=== PATIENT | male | born 1945 | race Caucasian/White ===

== ENCOUNTER 2019-12-11 07:14 | Day surgery (SDC) | payer MEDICARE, OTHER ==
[~2019-12-11 07:14] MED LIST: Cefuroxime 10 MG/ML SYRINGE EYERT SCH
[2019-12-11] MEDS: Polymyxin B/Trimethoprim 10 ML Bottle EYERT SCH ×4 (07:29→09:23)
[2019-12-11] MEDS: Brimonidine 0.2% Ophth Soln 5 ML Bottle EYERT SCH ×4 (07:34→09:23)
--- NOTE | 2019-12-11 07:37 | PCM.PREANE ---
Preanesthetic Assessment - Anesthesia/Transfusion/Family Hx Anesthesia History: Prior Anesthesia Without Reaction Family History of Anesthesia Reaction: No Transfusion History: No Prior Transfusion(s) - Review of Systems General: No Symptoms Pulmonary: No Symptoms Cardiovascular: No Symptoms Neurological: No Symptoms Other: Reports: None - Physical Assessment NPO Status Date: 12/10/19 NPO Status Time: 20:00 ASA Class: 2 Mental Status: Alert & Oriented x3 Airway Class: Mallampati = 2 Dentition: Reports: Dentures Thyro-Mental Finger Breadths: 3 Mouth Opening Finger Breadths: 3 ROM/Head Extension: Full Lungs: Clear to Auscultation, Normal Respiratory Effort Cardiovascular: Regular Rate, Regular Rhythm - Allergies Allergies/Adverse Reactions: Allergies Allergy/AdvReac Type Severity Reaction Status Date / Time Penicillins Allergy Swollen Verified 12/10/19 21:20 Tongue - Anesthesia Plan Beta Liliya: Metoprolol Med Last Dose Date: 12/11/19 Med Last Dose Time: 06:30 - Acknowledgements Anesthesia Type Planned: MAC Pt an Appropriate Candidate for the Planned Anesthesia: Yes Alternatives and Risks of Anesthesia Discussed w Pt/Guardian: Yes Pt/Guardian Understands and Agrees with Anesthesia Plan: Yes PreAnesthesia Questionnaire HEENT History: Reports: Cataract Cardiovascular History: Reports: High Cholesterol, Hypertension Respiratory History: Reports: None Gastrointestinal History: Reports: None Genitourinary History: Reports: None Musculoskeletal History: Reports: None Psychiatric History: Reports: None Endocrine/Metabolic History: Reports: Diabetes, 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) - Past Surgical History GI Surgical History: Reports: Colonoscopy - SUBSTANCE USE Smoking Status *Q: Former Smoker - HOME MEDS Home Medications: Home Meds Allopurinol [Zyloprim] 300 mg PO DAILY 12/10/19 [History] Garlic 500 mg PO DAILY 12/10/19 [History] Metoprolol Succinate [Toprol XL] 25 mg PO DAILY 12/10/19 [History] Multivitamin 1 tab PO DAILY 12/10/19 [History] Red Yeast Rice 600 mg PO DAILY 12/10/19 [History] amLODIPine Besylate [Norvasc] 5 mg PO DAILY 12/10/19 [History] lisinopriL [Lisinopril] 20 mg PO DAILY 12/10/19 [History] - CURRENT (IN HOUSE) MEDS Current Meds: Current Medications Brimonidine Tartrate (Alphagan 0.2% Ophth Soln) 0 ml EYERT ASDIRECTED HILARY Stop: 12/11/19 18:00 Cefuroxime Sodium (Zinacef) 0 mg EYERT ASDIRECTED HILARY Stop: 12/11/19 18:00 Lidocaine HCl (Xylocaine-Mpf 1%) 0 ml INJECT ASDIRECTED HILARY Stop: 12/11/19 18:00 Phenylephrine HCl (Lokesh-Synephrine 2.5% Ophth Soln) 0 ml EYERT ASDIRECTED HILARY Stop: 12/11/19 18:00 Pilocarpine HCl (Pilocar 4% Ophth Soln) 0 ml EYERT ASDIRECTED HILARY Stop: 12/11/19 18:00 Polymyxin/Trimethoprim Sulfate (Polytrim Ophth Soln) 0 ml EYERT ASDIRECTED HILARY Stop: 12/11/19 16:00 Tetracaine HCl (Tetracaine 0.5% Steri-Unit Teresa) 0 ml EYEBOTH ASDIRECTED HILARY Stop: 12/11/19 18:00 Tropicamide (Mydriacyl 1% Ophth Soln) 0 ml EYERT ASDIRECTED HILARY Stop: 12/11/19 18:00
[2019-12-11] MEDS: Phenylephrine 2.5% Ophth Soln 2 ML Bot EYERT SCH ×7 (07:38→09:02)
[2019-12-11] MEDS: Lidocaine 1% PF 2 ML SDV INJECT SCH ×2 (07:40→09:09)
[2019-12-11] MEDS: Tetracaine HCl/PF 0.5% 4 ML Bottle EYEBOTH SCH ×5 (07:40→09:08)
[2019-12-11] MEDS: Pilocarpine 4% Ophth Soln 15 ML Bot EYERT SCH ×2 (07:41→09:23)
[2019-12-11] MEDS: Tropicamide 1% Ophth Soln 15 ML Bottle EYERT SCH ×4 (07:43→08:33)
--- NOTE | 2019-12-11 09:24 | PCM48HPAN ---
Post Anesthesia Note - EVALUATION WITHIN 48HRS OF ANESTHETIC Vital Signs in Normal Range: Yes Patient Participated in Evaluation: Yes Respiratory Function Stable: Yes Airway Patent: Yes Cardiovascular Function Stable: Yes Hydration Status Stable: Yes Pain Control Satisfactory: Yes Nausea and Vomiting Control Satisfactory: Yes Mental Status Recovered: Yes Vital Signs: Last Vital Signs Temp 36.6 C 12/11/19 07:15 Pulse 64 12/11/19 07:15 Resp 16 12/11/19 07:15 BP 149/68 H 12/11/19 07:15 Pulse Ox 95 12/11/19 07:15
== END 2019-12-11 09:35 | disposition home or self-care (01) ==
LOC: JD.SDS 07:14
PROVIDERS: ATTEND Ophthalmology
DX: E11.36 Type 2 diabetes mellitus with diabetic cataract (principal); H25.813 Combined forms of age-related cataract, bilateral; H21.81 Floppy iris syndrome; H21.41 Pupillary membranes, right eye; E78.00 Pure hypercholesterolemia, unspecified; I10 Essential (primary) hypertension; Z87.891 Personal history of nicotine dependence; Z88.0 Allergy status to penicillin; Z79.899 Other long term (current) drug therapy
CPT/HCPCS: 66982; C1780; J0697; J2001

== ENCOUNTER 2020-01-08 07:30 | Day surgery (SDC) | payer MEDICARE, OTHER ==
--- NOTE | 2020-01-08 07:49 | PCM.PREANE ---
Preanesthetic Assessment - Procedure Proposed Procedure: cataract left - Anesthesia/Transfusion/Family Hx Anesthesia History: Prior Anesthesia Without Reaction Family History of Anesthesia Reaction: No Transfusion History: No Prior Transfusion(s) - Review of Systems General: No Symptoms Pulmonary: No Symptoms Cardiovascular: No Symptoms Gastrointestinal: No Symptoms Neurological: No Symptoms Other: Reports: None - Physical Assessment NPO Status Date: 01/07/20 NPO Status Time: 21:00 Vital Signs: 147/67 62 97% 20 98.1 Height: 5 ft 10 in Weight: 86.183 kg ASA Class: 2 Mental Status: Alert & Oriented x3 Airway Class: Mallampati = 1 Dentition: Reports: Dentures (top and bottom) Thyro-Mental Finger Breadths: 3 Mouth Opening Finger Breadths: 3 ROM/Head Extension: Full Lungs: Clear to Auscultation, Normal Respiratory Effort Cardiovascular: Regular Rate, Regular Rhythm - Allergies Allergies/Adverse Reactions: Allergies Allergy/AdvReac Type Severity Reaction Status Date / Time Penicillins Allergy Swollen Verified 01/07/20 14:54 Tongue - Blood Blood Available: No - Anesthesia Plan Beta Liliya: Metoprolol Med Last Dose Date: 01/08/20 Med Last Dose Time: 06:30 - Acknowledgements Anesthesia Type Planned: MAC Pt an Appropriate Candidate for the Planned Anesthesia: Yes Alternatives and Risks of Anesthesia Discussed w Pt/Guardian: Yes Pt/Guardian Understands and Agrees with Anesthesia Plan: Yes PreAnesthesia Questionnaire HEENT History: Reports: Cataract Cardiovascular History: Reports: High Cholesterol, Hypertension Respiratory History: Reports: None Gastrointestinal History: Reports: None Genitourinary History: Reports: None Musculoskeletal History: Reports: None, Gout Psychiatric History: Reports: None Endocrine/Metabolic History: Reports: Diabetes, 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) - Past Surgical History HEENT Surgical History: Reports: Cataract Surgery GI Surgical History: Reports: Colonoscopy - SUBSTANCE USE Smoking Status *Q: Former Smoker Tobacco Use Within Last Twelve Months: No Second Hand Smoke Exposure: No Days Per Week of Alcohol Use: 0 Recreational Drug Use History: No - HOME MEDS Home Medications: Home Meds Allopurinol [Zyloprim] 300 mg PO DAILY 12/10/19 [History] Garlic 500 mg PO DAILY 12/10/19 [History] Metoprolol Succinate [Toprol XL] 25 mg PO DAILY 12/10/19 [History] Multivitamin 1 tab PO DAILY 12/10/19 [History] Red Yeast Rice 600 mg PO DAILY 12/10/19 [History] amLODIPine Besylate [Norvasc] 5 mg PO DAILY 12/10/19 [History] lisinopriL [Lisinopril] 20 mg PO DAILY 12/10/19 [History] - CURRENT (IN HOUSE) MEDS Current Meds: Current Medications Brimonidine Tartrate (Alphagan 0.2% Ophth Soln) 0 ml EYELF ASDIRECTED HILARY Stop: 01/08/20 23:00 Cefuroxime Sodium (Zinacef) 0 mg EYELF ASDIRECTED HILARY Stop: 01/08/20 23:00 Lidocaine HCl (Xylocaine-Mpf 1%) 0 ml INJECT ASDIRECTED HILARY Stop: 01/08/20 23:00 Phenylephrine HCl (Lokesh-Synephrine 2.5% Ophth Soln) 0 ml EYELF ASDIRECTED HILARY Stop: 01/08/20 23:00 Pilocarpine HCl (Pilocar 4% Ophth Soln) 0 ml EYELF ASDIRECTED HILARY Stop: 01/08/20 23:00 Polymyxin/Trimethoprim Sulfate (Polytrim Ophth Soln) 0 ml EYELF ASDIRECTED HILARY Stop: 01/08/20 23:00 Tetracaine HCl (Tetracaine 0.5% Steri-Unit Teresa) 0 ml EYEBOTH ASDIRECTED HILARY Stop: 01/08/20 23:00 Tropicamide (Mydriacyl 1% Ophth Soln) 0 ml EYELF ASDIRECTED HILARY Stop: 01/08/20 23:00
[2020-01-08] MEDS: Polymyxin B/Trimethoprim 10 ML Bottle EYELF SCH ×4 (08:01→10:18)
[2020-01-08] MEDS: Brimonidine 0.2% Ophth Soln 5 ML Bottle EYELF SCH ×5 (08:07→10:18)
[2020-01-08] MEDS: Phenylephrine 2.5% Ophth Soln 2 ML Bot EYELF SCH ×6 (08:12→10:08)
[2020-01-08] MEDS: Tropicamide 1% Ophth Soln 15 ML Bottle EYELF SCH ×4 (08:16→09:28)
[2020-01-08] MEDS: Tetracaine HCl/PF 0.5% 4 ML Bottle EYEBOTH SCH ×5 (09:40→10:08)
[2020-01-08] MEDS: Lidocaine 1% PF 2 ML SDV INJECT SCH ×2 (10:03→10:08)
[2020-01-08] MEDS: Cefuroxime 10 MG/ML SYRINGE EYELF SCH ×2 (10:09→10:17)
[2020-01-08] MEDS: Pilocarpine 4% Ophth Soln 15 ML Bot EYELF SCH ×2 (10:09→10:18)
--- NOTE | 2020-01-08 10:21 | PCM48HPAN ---
Post Anesthesia Note - EVALUATION WITHIN 48HRS OF ANESTHETIC Vital Signs in Normal Range: Yes Patient Participated in Evaluation: Yes Respiratory Function Stable: Yes Airway Patent: Yes Cardiovascular Function Stable: Yes Hydration Status Stable: Yes Pain Control Satisfactory: Yes Nausea and Vomiting Control Satisfactory: Yes Mental Status Recovered: Yes Vital Signs: Last Vital Signs Temp 98.1 F 01/08/20 07:40 Pulse 62 01/08/20 07:40 Resp 20 01/08/20 07:40 BP 147/67 H 01/08/20 07:40 Pulse Ox 92 L 01/08/20 07:40 1019 159/90 20 69 94%
== END 2020-01-08 10:29 | disposition home or self-care (01) ==
LOC: JD.SDS 07:30
PROVIDERS: ATTEND Ophthalmology
DX: H25.812 Combined forms of age-related cataract, left eye (principal); H02.831 Dermatochalasis of right upper eyelid; H02.834 Dermatochalasis of left upper eyelid; H21.81 Floppy iris syndrome; H52.31 Anisometropia; E78.00 Pure hypercholesterolemia, unspecified; I10 Essential (primary) hypertension; Z88.0 Allergy status to penicillin; Z79.899 Other long term (current) drug therapy; Z96.1 Presence of intraocular lens; Z87.891 Personal history of nicotine dependence
CPT/HCPCS: 66984; J0697; J2001; V2632

== ENCOUNTER 2021-05-19 16:59 | Emergency (ER) | payer MEDICARE, OTHER ==
[2021-05-19] MEDS ORDERED: Sodium Chloride 0.9% 10 ML Syringe FLUSH PRN (17:35)
--- NOTE | 2021-05-19 18:45 | CR ---
Chest: Portable view of the chest was obtained. Comparison: No prior chest imaging is available. Heart size and mediastinum are within normal limits. Small linear density is seen within the right midlung most likely representing scarring. Slight scarring is also suggested within the left base. Lungs otherwise are clear. Bony structures show nothing acute. Impression: 1. Findings believed to be chronic as described above. 2. Nothing acute is appreciated. Diagnostic code #2
[2021-05-19] MEDS ORDERED: Dexamethasone 10 MG/ML SDV IVPUSH ONE (18:55)
--- NOTE | 2021-05-19 19:19 | EDM.PDOC ---
ED HPI GENERAL MEDICAL PROBLEM - General Chief Complaint: Respiratory Problem Stated Complaint: COVID +/LOW O2 Time Seen by Provider: 05/19/21 17:19 Source of Information: Reports: Patient, RN Notes Reviewed History Limitations: Reports: No Limitations - History of Present Illness INITIAL COMMENTS - FREE TEXT/NARRATIVE: Patient is a 75-year-old male presenting to the emergency department with complaints of low oxygen saturation with a likely diagnosis of COVID-19. He reports has been ill for approximately 7 days with cough, intermittent fevers, diarrhea, and shortness of breath. He has not been diagnosed with Covid, however his was diagnosed as Covid positive admitted to the hospital. He has been checking his oxygen saturations at home intermittently and found today that his oxygen was low. On arrival to ER, he was 75% on room air, however on 2 L he is saturating in the low 90s. Patient denies any chest pain, nausea, vomiting. He was not vaccinated for Covid. - Related Data Allergies Allergy/AdvReac Type Severity Reaction Status Date / Time Penicillins Allergy Swollen Verified 01/07/20 14:54 Tongue Home Meds: Home Meds Allopurinol [Zyloprim] 300 mg PO DAILY 12/10/19 [History] Garlic 500 mg PO DAILY 12/10/19 [History] Metoprolol Succinate [Toprol XL] 25 mg PO DAILY 12/10/19 [History] Multivitamin 1 tab PO DAILY 12/10/19 [History] Red Yeast Rice 600 mg PO DAILY 12/10/19 [History] amLODIPine Besylate [Norvasc] 5 mg PO DAILY 12/10/19 [History] lisinopriL [Lisinopril] 20 mg PO DAILY 12/10/19 [History] dexAMETHasone [Decadron] 6 mg PO DAILY 4 Days #4 tablet 05/19/21 [Rx] Past Medical History HEENT History: Reports: Cataract Cardiovascular History: Reports: High Cholesterol, Hypertension Respiratory History: Reports: None Gastrointestinal History: Reports: None Genitourinary History: Reports: None Musculoskeletal History: Reports: None, Gout Psychiatric History: Reports: None Endocrine/Metabolic History: Reports: Diabetes, 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 Denies: Pleuritic Chest Pain Cardiovascular: Reports: Dyspnea on Exertion. Denies: Chest Pain, Lightheadedness Endocrine: Reports: No Symptoms GI/Abdominal: Reports: Diarrhea. Denies: Abdominal Pain, Nausea, Vomiting : Reports: No Symptoms Musculoskeletal: Reports: No Symptoms Skin: Reports: No Symptoms Neurological: Reports: No Symptoms Psychiatric: Reports: No Symptoms Hematologic/Lymphatic: Reports: No Symptoms Immunologic: Reports: No Symptoms ED EXAM, GENERAL - Physical Exam Exam: See Below Exam Limited By: No Limitations General Appearance: Alert, WD/WN, No Apparent Distress Respiratory/Chest: No Respiratory Distress, Lungs Clear, No Accessory Muscle Use, Chest Non-Tender, Decreased Breath Sounds Cardiovascular: Normal Peripheral Pulses, Regular Rate, Rhythm, No Edema, No Gallop, No JVD, No Murmur, No Rub GI/Abdominal: Normal Bowel Sounds, Soft, Non-Tender, No Organomegaly, No Distention, No Abnormal Bruit, No Mass Neurological: Alert, Oriented, CN II-XII Intact, Normal Cognition, Normal Gait, Normal Reflexes, No Motor/Sensory Deficits Psychiatric: Normal Affect, Normal Mood Skin Exam: Warm, Dry, Intact, Normal Color, No Rash #1 Interpretation EKG Date: 05/19/21 Time: 17:24 Rhythm: Other (sinus arrhythmia) Rate (Beats/Min): 68 [place]: Normal P-Wave: Present QRS: Other (LAFB) ST-T: Normal QT: Normal Course - Vital Signs Last Recorded V/S: Last Vital Signs Temp 98 F 05/19/21 17:21 Pulse 71 05/19/21 17:21 Resp 16 05/19/21 17:21 BP 147/74 H 05/19/21 17:21 Pulse Ox 86 L 05/19/21 19:39 - Orders/Labs/Meds Orders: Active Orders 24 hr Category Date Time Status Peripheral IV Insertion Adult [OM.PC] Stat Oth 05/19/21 17:35 Ordered Labs: Laboratory Tests 05/19/21 05/19/21 05/19/21 Range/Units 17:46 18:00 18:00 WBC 3.21 L (4.23-9.07) K/mm3 RBC 5.30 (4.63-6.08) M/mm3 Hgb 15.7 (13.7-17.5) gm/dl Hct 47.1 (40.1-51.0) % MCV 88.9 (79.0-92.2) fl MCH 29.6 (25.7-32.2) pg MCHC 33.3 (32.2-35.5) g/dl RDW Std Deviation 43.0 (35.1-43.9) fL Plt Count 140 L (163-337) K/mm3 MPV 9.9 (9.4-12.3) fl Neut % (Auto) 70.5 H (34.0-67.9) % Lymph % (Auto) 11.5 L (21.8-53.1) % [place] % (Auto) 16.8 H (5.3-12.2) % Eos % (Auto) 0.6 L (0.8-7.0) Baso % (Auto) 0.3 (0.1-1.2) % Neut # (Auto) 2.26 (1.78-5.38) K/mm3 Lymph # (Auto) 0.37 L (1.32-3.57) K/mm3 [place] # (Auto) 0.54 (0.30-0.82) K/mm3 Eos # (Auto) 0.02 L (0.04-0.54) K/mm3 Baso # (Auto) 0.01 (0.01-0.08) K/mm3 D-Dimer, Quantitative 0.90 H (0.19-0.50) mg/L Sodium (136-145) mEq/L Potassium (3.5-5.1) mEq/L Chloride (98-107) mEq/L Carbon Dioxide (21-32) mEq/L Anion Gap (5-15) BUN (7-18) mg/dL Creatinine (0.7-1.3) mg/dL Est Cr Clr Drug Dosing Estimated GFR (MDRD) (>60) mL/min BUN/Creatinine Ratio (14-18) Glucose (70-99) mg/dL Calcium (8.5-10.1) mg/dL Total Bilirubin (0.2-1.0) mg/dL AST (15-37) U/L ALT (16-63) U/L Alkaline Phosphatase (46-116) U/L Troponin I (0.00-0.056) ng/mL C-Reactive Protein (<1.0) mg/dL NT-Pro-B Natriuret Pep (0-450) pg/mL Total Protein (6.4-8.2) g/dl Albumin (3.4-5.0) g/dl Globulin gm/dL Albumin/Globulin Ratio (1-2) SARS-CoV-2 RNA (AUBREY) Positive H (NEGATIVE) 05/19/21 05/19/21 Range/Units 18:00 18:00 WBC (4.23-9.07) K/mm3 RBC (4.63-6.08) M/mm3 Hgb (13.7-17.5) gm/dl Hct (40.1-51.0) % MCV (79.0-92.2) fl MCH (25.7-32.2) pg MCHC (32.2-35.5) g/dl RDW Std Deviation (35.1-43.9) fL Plt Count (163-337) K/mm3 MPV (9.4-12.3) fl Neut % (Auto) (34.0-67.9) % Lymph % (Auto) (21.8-53.1) % [place] % (Auto) (5.3-12.2) % Eos % (Auto) (0.8-7.0) Baso % (Auto) (0.1-1.2) % Neut # (Auto) (1.78-5.38) K/mm3 Lymph # (Auto) (1.32-3.57) K/mm3 [place] # (Auto) (0.30-0.82) K/mm3 Eos # (Auto) (0.04-0.54) K/mm3 Baso # (Auto) (0.01-0.08) K/mm3 D-Dimer, Quantitative (0.19-0.50) mg/L Sodium 135 L (136-145) mEq/L Potassium 4.0 (3.5-5.1) mEq/L Chloride 100 (98-107) mEq/L Carbon Dioxide 26 (21-32) mEq/L Anion Gap 13.0 (5-15) BUN 17 (7-18) mg/dL Creatinine 1.1 (0.7-1.3) mg/dL Est Cr Clr Drug Dosing TNP Estimated GFR (MDRD) > 60 (>60) mL/min BUN/Creatinine Ratio 15.5 (14-18) Glucose 112 H (70-99) mg/dL Calcium 8.1 L (8.5-10.1) mg/dL Total Bilirubin 0.8 (0.2-1.0) mg/dL AST 92 H (15-37) U/L ALT 183 H (16-63) U/L Alkaline Phosphatase 67 (46-116) U/L Troponin I < 0.017 (0.00-0.056) ng/mL C-Reactive Protein 2.5 H* (<1.0) mg/dL NT-Pro-B Natriuret Pep 135 (0-450) pg/mL Total Protein 7.1 (6.4-8.2) g/dl Albumin 3.6 (3.4-5.0) g/dl Globulin 3.5 gm/dL Albumin/Globulin Ratio 1.0 (1-2) SARS-CoV-2 RNA (AUBREY) (NEGATIVE) Meds: Medications Discontinued Medications Generic Name Dose Route Start Last Admin Trade Name Freq PRN Reason Stop Dose Admin Dexamethasone 6 mg 05/19/21 18:55 05/19/21 19:14 Dexamethasone 10 Mg/Ml Sdv IVPUSH 05/19/21 18:56 6 mg ONETIME ONE Administration Sodium Chloride 10 ml 05/19/21 17:35 05/19/21 18:01 Sodium Chloride 0.9% 10 Ml Syringe FLUSH 10 ml ASDIRECTED PRN Administration Keep Vein Open - Re-Assessments/Exams Free Text/Narrative Re-Assessment/Exam: Patient is a 75-year-old male presenting to the emergency department for low oxygen saturation with a likely diagnosis of Covid. His is Covid positive and he reports symptoms for the last 7 days. He has not been tested. After walking to the room, oxygen saturations were 75% on room air. He is on 2 L of oxygen currently saturating in the mid to upper 90s. On exam, lung sounds are clear to auscultation but diminished throughout. He has no chronic underlying lung conditions. I have ordered blood work, Covid testing, chest x-ray. I will give him dexamethasone 6 mg IV. 05/19/21 19:24 Hematology significant for D-dimer minimally elevated 0.90, sodium 135, glucose 112, AST 92, ALT 183, CRP 2.5. Troponin is undetectably low. Covid is positive. Chest x-ray shows no acute abnormalities. At rest, off of O2, oxygen saturations were 86%. Discussed treatment options with patient. Unfortunately we do not have any beds available in our facility. I did offer to look for placement in outlying facilities, however advised that offhand we do not know exactly where that may be. Discussed the option of home oxygen with him and he is comfortable with this and would like to go home with oxygen. I will start him on dexamethasone 6 mg daily. He will be sent home with supplemental O2 a pulse oximeter. Discussed that if he is requiring 4 more liters of oxygen to keep his saturations above 92%, he should return to the ER. He verbalized understanding of this. 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 His son does state that on a normal day, patient becomes quite dyspneic with exertion. Discharge instructions as documented. Departure - Departure Time of Disposition: 19:45 Disposition: Home, Self-Care 01 Condition: Good Clinical Impression: COVID-19, Hypoxia - Discharge Information *PRESCRIPTION DRUG MONITORING PROGRAM REVIEWED*: No *COPY OF PRESCRIPTION DRUG MONITORING REPORT IN PATIENT LYDIA: No Prescriptions: dexAMETHasone [Decadron] 6 mg PO DAILY 4 Days #4 tablet Instructions: Hypoxia, COVID-19 Referrals: Aaron Abraham MD [Primary Care Provider] - Forms: ED Department Discharge Additional Instructions: Use the home oxygen at 1 to 3 L to keep your oxygen saturations above 90% Take the dexamethasone as ordered beginning tomorrow evening. Tylenol and ibuprofen as needed for fever and discomfort. Ensure that you are taking an adequate amount of fluid. If you are requiring 4 more liters of oxygen to keep your saturations greater than 90% or you experience any other new or worsening symptoms, please do not hesitate to return to the emergency department for reevaluation. Sepsis Event Note (ED) - Evaluation Sepsis Screening Result: No Definite Risk - Focused Exam Vital Signs: Vital Signs Temp Pulse Resp BP Pulse Ox 05/19/21 19:39 86 L 05/19/21 17:21 98 F 71 16 147/74 H 75 L - My Orders Last 24 Hours: My Active Orders 05/19/21 17:35 Peripheral IV Insertion Adult [OM.PC] Stat - Assessment/Plan Last 24 Hours: My Active Orders 05/19/21 17:35 Peripheral IV Insertion Adult [OM.PC] Stat
== END 2021-05-19 20:41 | disposition home or self-care (01) ==
LOC: JD.ED 16:59
DX: U07.1 COVID-19 (principal); R09.02 Hypoxemia; I49.8 Other specified cardiac arrhythmias; I10 Essential (primary) hypertension; M10.9 Gout, unspecified; E11.9 Type 2 diabetes mellitus without complications; Z88.0 Allergy status to penicillin; Z79.899 Other long term (current) drug therapy
CPT/HCPCS: 36415; 71045; 80053; 83880; 84484; 85025; 85379; 86140; 93005; 96374; 99285; J1100; U0002

== ENCOUNTER 2023-08-27 05:50 | Day surgery (SDC) | payer MEDICARE, OTHER ==
[~2023-08-27 05:50] MED LIST changes: -Cefuroxime 10 MG/ML SYRINGE EYERT SCH; +Sodium Chloride 0.9% 10 ML Syringe FLUSH PRN
[2023-08-27] MEDS ORDERED: Morphine 8 MG, EPINEPHrine 0.3 MG, Cefuroxime 750 MG, Ketorolac 30 MG, Sodium Chloride ... PRN (06:00)
[2023-08-27] MEDS ORDERED: fentaNYL 100 MCG/2 ML SDV IVPUSH PRN (06:15)
[2023-08-27] MEDS ORDERED: HYDROmorphone 0.5 MG/0.5 ML Syringe IVPUSH PRN (06:15)
[2023-08-27] MEDS ORDERED: Ondansetron 4 MG/2 ML SDV IVPUSH PRN (06:15)
[2023-08-27] MEDS: Lactated Ringers 1,000 ML IV SCH (06:15)
[2023-08-27] MEDS ORDERED: Midazolam 1 MG/ML 2 ML SDV ONE (06:26)
[2023-08-27] MEDS ORDERED: Propofol 200 MG/20 ML SDV ONE (06:26)
[2023-08-27] MEDS ORDERED: fentaNYL 100 MCG/2 ML SDV ONE (06:26)
[2023-08-27] MEDS ORDERED: Lidocaine 1% 2 ML ONE (06:26)
[2023-08-27] MEDS ORDERED: Clindamycin Phosphate in D5W 50 ML IV ONE (06:48)
[2023-08-27] MEDS ORDERED: Lactated Ringers 1,000 ML ONE (07:46)
[2023-08-27] MEDS: Morphine 8 MG, EPINEPHrine 0.3 MG, Ketorolac 30 MG, Sodium Chloride 0.9% 7.9 ML PRN (07:53)
[2023-08-27] MEDS: Tranexamic Acid 1,000 MG/10 ML Vial ONE (07:54)
[2023-08-27] MEDS: Vancomycin 1 GM SDV ONE (07:54)
[2023-08-27] MEDS ORDERED: Sodium Chloride 0.9% 10 ML Syringe FLUSH SCH (09:00)
[2023-08-27] MEDS: Acetaminophen/HYDROcodone 325-5 MG Tab PO PRN (12:17)
== END 2023-08-27 13:20 | disposition home or self-care (01) ==
LOC: JD.SDS 05:50
PROVIDERS: ATTEND Orthopaedic Surgery
DX: M16.11 Unilateral primary osteoarthritis, right hip (principal); I10 Essential (primary) hypertension; E11.9 Type 2 diabetes mellitus without complications; E78.00 Pure hypercholesterolemia, unspecified; Z87.891 Personal history of nicotine dependence; Z79.82 Long term (current) use of aspirin; Z79.899 Other long term (current) drug therapy; Z88.0 Allergy status to penicillin
CPT/HCPCS: 0055T; 27130; 36415; 73501; 86850; 86900; 86901; 97116; 97161; A9270; C1713; C1776; J0171; J0736; J1885; J2250; J2270; J2704; J3010; J3370; J7030; J7120; 01214; 99100; J3490